=== PATIENT | female | born 1935 | race Caucasian/White ===

== ENCOUNTER 2018-04-16 18:34 | Inpatient (IN) ==
--- NOTE | 2018-04-16 21:05 | Emergency Department Note ---
Disposition Clinical Impression: Laceration, Elbow fracture, right Fall Qualifiers: Encounter type: initial encounter Qualified Code(s): W19.XXXA - Unspecified fall, initial encounter Disposition: Admitted As Inpatient Condition: Undetermined Time of Disposition: 22:27 (Dr Mendez accepted her PROLONGED ER VISIT due to pt declined suturing and then agreed to take pain control and her can not provide care at home) General Adult HPI - General Chief complaint: ED Fall Stated complaint: fell; lac on right eye/wrist and right chest pain Source: patient, family Limitations: no limitations - History of Present Illness HPI Narrative: Patient is a pleasant 82 yo F with past medical history significant for HTN, Dyslipidemia and CAD who is presenting to [facility] Emergency Room with a chief complaint off fall. She stumbled at the driveway at the parking lot and fell on her right side, bruised her chest and right forehead just above her right eye were there is a laceration and right elbow pain. She has no LOC. She takes baby ASA. She finds difficult to take deep breath. She also c/o right knee pain. She has no other complaints. Patient denies any fever, chills or night sweats. Pt also denies any eye pain or visual disturbances. There is no sore throat, nasal drainages or facial congestion. There is no chest pain, palpitations or racing heart. Pt also denies any shortness of breath, cough or chest congestion. There is no abdominal pain, nausea, vomiting or diarrhea. There is no urgency, frequency or dysuria. There is no neurological manifestations, no headache, no vertigo or weakness. The patient also denies any anxiety, depression, hallucinations and has no homicidal or suicidal ideations. There is no polyuria, polydipsia or recent weight change. There is no easy bruising or bleeding. Review of other systems is otherwise negative except above. Onset (ago): hour(s) Location: face, upper extremity, lower extremity Radiation: non-radiation Pain Severity: moderate Pain Scale: 6 - Related Data Home Medications Medication Instructions Recorded Confirmed Allopurinol [Zyloprim] 200 mg PO QID 03/15/15 03/15/15 Atorvastatin [Lipitor] 40 mg PO HS 03/15/15 03/15/15 Cholecalciferol (Vitamin D3) 2,000 unit PO 1-2XD 03/15/15 03/15/15 [Vitamin D] Ferrous Sulfate 325 mg PO DAILY 03/15/15 03/15/15 Furosemide [Lasix] 20 mg PO BIDDIURETIC 03/15/15 03/15/15 Labetalol [Trandate] 200 mg PO BID 03/15/15 03/15/15 Lisinopril [Zestril] 40 mg PO 1-2XD 03/15/15 03/15/15 Paceron 200 mg PO QDPC 03/15/15 03/15/15 Potassium Chloride 10 meq PO BIDWM 03/15/15 03/15/15 glipiZIDE [Glucotrol] 5 mg PO 0800 03/15/15 03/15/15 Allergies Allergy/AdvReac Type Severity Reaction Status Date / Time No Known Allergies Allergy Verified 03/15/15 17:33 All systems ED: reviewed and negative except as stated. 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: Reports: no MAGNETO 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 - Social History Smoking Status: Never smoker Smokeless Tobacco Status: No Alcohol use: Reports: none Drug use: Reports: none Physical Exam - General Limitations: no limitations General appearance: alert - Head Head exam: normocephalic, normal inspection, other (right upper eylid with 2 cm laceration deep above the lid) - Eye Eye exam: Present: normal appearance, PERRL, EOMI - Expanded Eye Exam Pupils: Left: reactive - ENT ENT exam: normal exam, normal oropharynx, mucous membranes moist - Expanded ENT Exam External ear exam: Present: normal external inspection Mouth exam: Present: normal external inspection Teeth exam: Present: normal inspection Throat exam: Present: normal inspection - Neck Neck exam: Present: normal inspection, full ROM, trachea midline - Chest Chest inspection: Present: normal inspection, symmetric chest wall rise, tenderness, other (tender bluish discolration on right rib cage) - Respiratory Respiratory exam: Present: normal lung sounds bilaterally - Cardiovascular Cardiovascular exam: Present: regular rate, normal rhythm, normal heart sounds - Abdominal Exam Abdominal exam: Present: soft, Non-Tender. Absent: tenderness, distention, guarding, rebound, rigidity - Extremities Exam Extremities exam: Present: normal inspection, full ROM. Absent: tenderness, pedal edema - Expanded Upper Extremity Exam Shoulder exam: Present: normal inspection, full ROM Arm exam: Present: normal inspection, full ROM Elbow exam: Present: normal inspection, full ROM, tenderness (tender right elbow with full ROM but limited due to the pain) Forearm/Wrist exam: Present: normal inspection, full ROM Hand exam: Present: normal inspection, full ROM, abrasion, laceration (right dorsum hand with 2 cm laceration superficial), ecchymosis Vascular exam: Normal: capillary refill, radial pulse - Expanded Lower Extremity Exam Hip/Pelvis exam: Present: normal inspection, full ROM Upper leg exam: Present: normal inspection, full ROM Knee exam: Present: normal inspection, full ROM, tenderness (right knee is bruised and tender but has full ROM) Lower leg exam: Present: normal inspection, full ROM Ankle exam: Present: normal inspection, full ROM Foot/toe exam: Present: normal inspection, full ROM Neurovascular/Tendon exam: Absent: motor deficit, sensory deficit, tendon deficit - Back Exam Back exam: Present: normal inspection, full ROM. Absent: tenderness - Neurological Exam Neurological exam: Present: alert, oriented X3 - Expanded Neurological Exam Patient oriented to: Present: person, place, time Coma Scale Eye Opening: Spontaneous Coma Scale Motor Response: Obeys Commands Coma Scale Verbal Response: Oriented Coma Scale Total: 15 - Psychiatric Psychiatric exam: Present: normal affect, normal mood - Skin Skin exam: Present: warm, dry, intact, normal color Course Vital Signs Temperature 98.5 F 04/16/18 18:38 Pulse Rate 63 04/16/18 18:38 Respiratory Rate 22 04/16/18 18:38 Blood Pressure 185/75 04/16/18 18:38 O2 Sat by Pulse Oximetry 99 04/16/18 18:38 Temperature 98.5 F 04/16/18 18:38 Pulse Rate 68 04/16/18 20:25 Respiratory Rate 14 04/16/18 20:25 Blood Pressure 174/70 04/16/18 20:25 O2 Sat by Pulse Oximetry 98 04/16/18 20:25 Oxygen Delivery Oxygen Delivery Room Air Procedures - Laceration Laceration 1 Site: face Side (If applicable): right Size (cm): 2 Description: stellate, irregular Depth: simple, single layer Local Anesthetic: lidocaine 1% Amount of Anesthesia Used (mL): 3 Pre-repair: wound explored, irrigated extensively Skin layer closed with: nylon Size: 4-0 Number of sutures/jennifer: 2 Technique: simple, interrupted Laceration 2 Site: hand Side (If applicable): right Size (cm): 3.5 Description: stellate, irregular Depth: simple, single layer Local Anesthetic: lidocaine 1% Amount of Anesthesia Used (mL): 3 Pre-repair: wound explored, irrigated extensively Skin layer closed with: nylon Size: 4-0 Number of sutures/jennifer: 2 Technique: simple, interrupted Medical Decision Making - MDM Narrative Medical decision making narrative: PROLONGED TIME IN ER as pt declined taking pain meds then was not cooperative with suturing. I transferred her to a well light room on wheel chair by myself and attempted to help her getting into the bed after lowering it but family and patient became upset and requested that she will not be able to move to the bed I explained that repairing laceration on wheelchair is challenging since lidocaine and flushing may go into her eyes and she will need to extend and tilt her head and stabilize it during the procedure which may be difficult for her. DC with Dr David regarding the elbow Fx and he advised to place splint and FU tomorrow at [facility] - Medical Records Medical records reviewed: Yes I reviewed the patient's medical records. - Lab Data Lab results reviewed: Yes I reviewed the patient's lab results. - Radiology Data Radiology results reviewed: Yes I reviewed the patient's radiology results.
[2018-04-16] MEDS ORDERED: *HR* HYDROcodone/Acet 5/325 mg TABLET PO ONE (22:04)
[2018-04-16] MEDS ORDERED: Tdap (Boostrix) Vaccine 0.5 ML SYRINGE IM ONE (22:39)
[2018-04-16] MEDS ORDERED: Lisinopril 20 MG TABLET PO SCH (22:45)
[2018-04-16] MEDS ORDERED: Cholecalciferol (D-3) 1,000 UNIT TABLET PO SCH (22:45)
[2018-04-17] MEDS ORDERED: Sulfamethoxazole/Trimeth DS 1 EACH TABLET PO SCH ×2 (00:45→09:00)
[2018-04-17] MEDS ORDERED: Naloxone 0.4 MG/ML INJ IVP PRN (02:32)
[2018-04-17] MEDS: *HR* HYDROcodone/Acet 5/325 mg TABLET PO PRN (04:15)
[2018-04-17 05:42] LABS: Basophils % 0.4 %; Eosinophils # 0.1 K/mcL (0.0-0.6); Eosinophils % 1.4 %; Hematocrit 32.7 % (35.3-44.9); Hemoglobin 10.9 g/dL (11.5-15.4); Immature Granulocytes % 0.1 % (0-4); Lymphocytes # 1.2 K/mcL (0.6-4.6); Lymphocytes % 17.8 %; Mean Corpuscular HGB Conc 33.3 g/dL (31.6-35.5); Mean Corpuscular Hemoglobin 30.9 pg (28.0-33.3); Mean Corpuscular Volume 92.6 fL (83.0-100.0); Mean Platelet Volume 10.8 fL (9.4-12.4); Monocytes # 0.5 K/mcL (0.0-1.3); Monocytes % 7.8 %; Platelet Count 178 K/mcL (140-400); Red Blood Count 3.53 M/mcL (3.82-4.97); Red Cell Distribution Width 14.4 % (11.5-14.5); Segmented Neutrophils % 72.5 %
[2018-04-17 06:05] LABS: BUN/Creatinine Ratio 41 (6-26); Blood Urea Nitrogen 30 mg/dL (8-23); Calcium 9.3 mg/dL (8.6-10.3); Carbon Dioxide 25 mEq/L (23-29); Chloride 106 mEq/L (98-107); Glucose 106 mg/dL (70-105); Osmolality,Calculated 297 (280-300); Potassium 3.7 mEq/L (3.5-5.1); Sodium 140 mEq/L (136-145); eGFR For Non-African Americans > 60 (> 60)
[2018-04-17] MEDS ORDERED: Dextrose Gel 15 GM/37.5 ML TUBE PO PRN ×2 (07:24)
[2018-04-17] MEDS ORDERED: *HR* Dextrose 50 % in Water (Syg) 50 ML SYRINGE IVP PRN (07:24)
[2018-04-17] MEDS ORDERED: D5% in Water 1,000 ML IVC PRN (07:24)
[2018-04-17] MEDS: Ondansetron ODT 4 MG TAB.RAPDIS SL PRN (07:51)
[2018-04-17] MEDS ORDERED: *HR* Promethazine 25 MG/ML VIAL IVP PRN (09:01)
[2018-04-17] MEDS: Insulin LISPRO 300 UNITS/3 ML VIAL SQ SCH ×4 (09:48→21:25)
[2018-04-17] MEDS: *HR* GlipiZIDE 5 MG TABLET PO SCH (13:36)
[2018-04-17] MEDS: Furosemide 20 MG TABLET PO SCH ×2 (13:36→15:52)
[2018-04-17] MEDS: Lisinopril 20 MG TABLET PO SCH (13:37)
[2018-04-17] MEDS: [UNRECOGNIZED DRUG - OTHER] PO SCH (13:37)
[2018-04-17] MEDS: Cholecalciferol (D-3) 1,000 UNIT TABLET PO SCH (13:37)
--- NOTE | 2018-04-17 15:06 | Internal Med History&Physical ---
Date of Encounter: 04/17/18 Time of Encounter: 14:10 Assessment and Plan (1) Elbow fracture, right Current visit: Yes Status: Acute Continue immobilization sling. She will follow with orthopedist tomorrow morning. Analgesics will be scheduled with additional medication for prn use. Qualifiers: Encounter type: initial encounter Fracture type: closed Qualified Code(s) : S42.401A - Unspecified fracture of lower end of right humerus, initial encounter for closed fracture (2) Anemia Current visit: Yes Status: Acute Order anemia testing in a.m. Qualifiers: Anemia type: unspecified type Qualified Code(s): D64.9 - Anemia, unspecified (3) Weight loss Current visit: Yes Status: Acute 15 pound weight loss reported by history. Check TSH in a.m. Further workup can be done by her PCP as an outpatient. (4) Hypertension Current visit: Yes Status: Chronic Continue lisinopril and labetalol. Qualifiers: Hypertension type: essential hypertension Qualified Code(s): I10 - Essential (primary) hypertension (5) Azotemia Current visit: Yes Status: Acute She reports taking Lasix 20 mg daily for edema. IV fluids will be started and labs rechecked in a.m. (6) DM type 2 (diabetes mellitus, type 2) Current visit: Yes Status: Acute Check hemoglobin A1c in a.m. Continue Glucotrol and do Accu-Cheks with SSI. Qualifiers: Diabetes mellitus long-term insulin use: without buttermaker continuous churn use Diabetes mellitus complication status: without complication Qualified Code(s): E11.9 - Type 2 diabetes mellitus without complications Internal Medicine - H&P: HPI Chief complaint: Fall and arm fracture Admitted From: Emergency Dept Plans for Post Hospital Care: Home History of present illness: Ms. Connor is a 82 year old female who came to emergency room after a fall in a hallway at home. She reports she simply lost her balance and fell to the floor. She struck her head on either the floor or the wall causing a right eyebrow area laceration. She sustained a right radius fracture. She was brought to emergency room and evaluated. Her right eyebrow laceration was sutured and she was placed in a right arm immobilization splint and admitted to [facility] for ongoing care needs. She states she has not fallen at home previously. She complains of discomfort in her left arm and knees. Musko skeletal history is significant otherwise for gout DJD and osteopenia with vitamin D deficiency Past Med Surg Social Fam HX - Past Medical History Medical history: CVA, diabetes, hyperlipidemia, hypertension Additional medical history: cardiac doctor at [place]. Psychiatric history: no psych history - Past Surgical History Surgical History: hysterectomy Additional surgical history: Valve replacement - Social History Smoking Status: Never smoker Smokeless Tobacco Status: No Alcohol use: none Drug use: none Internal Medicine - H&P: Meds Allopurinol [Zyloprim] 200 mg PO QID 03/15/15 [History] Atorvastatin [Lipitor] 40 mg PO HS 03/15/15 [History] Cholecalciferol (Vitamin D3) [Vitamin D] 2,000 unit PO 1-2XD 03/15/15 [History] Ferrous Sulfate 325 mg PO DAILY 03/15/15 [History] Furosemide [Lasix] 20 mg PO BIDDIURETIC 03/15/15 [History] Labetalol [Trandate] 200 mg PO BID 03/15/15 [History] Lisinopril [Zestril] 40 mg PO 1-2XD 03/15/15 [History] Paceron 200 mg PO QDPC 03/15/15 [History] Potassium Chloride 10 meq PO BIDWM 03/15/15 [History] glipiZIDE [Glucotrol] 5 mg PO 0800 03/15/15 [History] 3 Allergy/AdvReac Type Severity Reaction Status Date / Time No Known Allergies Allergy Verified 03/15/15 17:33 All Systems PM: A 10-system review of systems was performed and is negative for pertinent findings except as documented above in the HPI. Review of systems: Gen.: She states her weight has decreased approximately 15 pounds in the past month, unintentionally Cardiovascular: She has history of hypertension and aortic stenosis with [facility] aortic tissue valve replacement 2012. She had 2 vessel CABG with BERNSTEIN to LAD and SVG to first OMB of circumflex at the time of AVR. She had postoperative atrial fibrillation. She is maintained on amiodarone and had a watchman device placed in 2014. She denies DVT or pulmonary embolus. Respiratory: She smoked minimally as an adult and has no known chronic lung disease GI: She had GI bleed with hospitalization 2010. This felt to be due to NSAID use and she has had no recurrence. 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 She has been maintained on aspirin. She has had no seizures or migraine headaches Endocrine: She was diagnosed with DM 2 approximately 2006. 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 She has had anemia and has been on iron replacement. Upper and lower endoscopy 2015 showed no obvious source of blood loss. Psychiatric: She denies anxiety depression or other mental health issues Musko skeletal: As per history of present illness - Constitutional Vitals: Temp Pulse Resp BP Pulse Ox 98.8 F 73 18 143/81 98 04/17/18 11:04/17/18 11:04/17/18 11:04/17/18 11:04/17/18 11:00 Exam: Gen.: She is a well-developed well-nourished female resting comfortably in bed who appears in no severe distress at present time HEENT she has a laceration with sutures in place in the right eyebrow area. There is surrounding ecchymosis. Eyes: EOMI. There is no scleral icterus. Mouth: Mucosa is moist. Neck: Supple and nontender. There is no thyromegaly or adenopathy noted. Heart: Regular without murmurs gallops or ectopics Lungs: No wheezes or crackles are heard. Abdomen: Soft and nontender. No masses or guarding are noted. Extremities: There is no cyanosis edema or clubbing noted. Dorsalis pedis and posterior tibial pulses are trace palpable bilaterally. She has ecchymosis on her right lateral knee area. She has pain on attempted movement of her left arm. No ecchymoses are noted. Right arm is wrapped in elastic wrap with an immobilizer sling in place. I did not remove these. Neurologic: Mental status: She is talkative and a good historian. Cranial nerves: Smile is symmetric. Forehead wrinkles bilaterally. Tongue protrudes midline. EOMI. Motor: She has pain on tempting to raise her left arm. The right arm is in an immobilizer sling. No further neurologic testing is attempted. Skin: Warm and dry. Internal Med - H&P Results - Labs CBC & Chem 7: 09/17/18 04:10 04/17/18 04:10 Labs: Short CBC 04/17/18 Range/Units 04:10 WBC 7.0 (4.3-11.1) K/mcL Hgb 10.9 L (11.5-15.4) g/dL Hct 32.7 L (35.3-44.9) % Plt Count 178 (140-400) K/mcL Neutrophils # 5.0 (1.6-8.9) K/mcL BMP 04/17/18 04:10 Sodium 140 Potassium 3.7 Chloride 106 Carbon Dioxide 25 BUN 30 H Creatinine 0.74 Glucose 106 H Calcium 9.3
[2018-04-17] MEDS ORDERED: traZODone 50 MG TABLET PO PRN (15:21)
[2018-04-17] MEDS: 0.45 % Sodium Chloride w/KCl 20 MEQ/1,000 ML MLS IVC SCH (15:39)
[2018-04-18] MEDS: 0.45 % Sodium Chloride w/KCl 20 MEQ/1,000 ML MLS IVC SCH (01:49)
[2018-04-18 06:51] LABS: Basophils % 0.6 %; Eosinophils # 0.2 K/mcL (0.0-0.6); Eosinophils % 3.4 %; Hematocrit 31.3 % (35.3-44.9); Hemoglobin 10.3 g/dL (11.5-15.4); Immature Granulocytes % 0.4 % (0-4); Lymphocytes # 1.2 K/mcL (0.6-4.6); Lymphocytes % 22.9 %; Mean Corpuscular HGB Conc 32.9 g/dL (31.6-35.5); Mean Corpuscular Hemoglobin 30.8 pg (28.0-33.3); Mean Corpuscular Volume 93.7 fL (83.0-100.0); Mean Platelet Volume 10.9 fL (9.4-12.4); Monocytes # 0.5 K/mcL (0.0-1.3); Monocytes % 8.8 %; Neutrophils # 3.3 K/mcL (1.6-8.9); Platelet Count 163 K/mcL (140-400); Red Blood Count 3.34 M/mcL (3.82-4.97); Red Cell Distribution Width 14.4 % (11.5-14.5); Segmented Neutrophils % 63.9 %
[2018-04-18 07:58] LABS: Alanine Aminotransferase 16 Units/L (7-52); Albumin 3.5 g/dL (3.5-5.7); Albumin/Globulin Ratio 1.9 (1.1-2.2); Alkaline Phosphatase 100 Units/L (34-104); Aspartate Amino Transferase 17 Units/L (13-39); BUN/Creatinine Ratio 32 (6-26); Bilirubin,Total 0.7 mg/dL (0.3-1.0); Blood Urea Nitrogen 24 mg/dL (8-23); Calcium 9.1 mg/dL (8.6-10.3); Carbon Dioxide 25 mEq/L (23-29); Chloride 106 mEq/L (98-107); Globulin 1.8 g/dL (2.4-3.5); Glucose 103 mg/dL (70-105); Osmolality,Calculated 292 (280-300); Potassium 4.4 mEq/L (3.5-5.1); Sodium 139 mEq/L (136-145); Total Protein 5.3 g/dL (6.4-8.9); Uric Acid 2.2 mg/dL (2.3-7.6); eGFR For Non-African Americans > 60 (> 60)
[2018-04-18 09:13] LABS: Thyroid Stimulating Hormone 2.215 mcIU/mL (0.340-5.600)
[2018-04-18 11:01] LABS: Estimated Average Glucose 114 mg/dl; Hemoglobin A1C 5.6 %
[2018-04-18] MEDS: Insulin LISPRO 300 UNITS/3 ML VIAL SQ SCH ×4 (11:50→20:47)
[2018-04-18] MEDS: Lisinopril 20 MG TABLET PO SCH (12:03)
[2018-04-18] MEDS: *HR* GlipiZIDE 5 MG TABLET PO SCH (12:03)
[2018-04-18] MEDS: Cholecalciferol (D-3) 1,000 UNIT TABLET PO SCH (12:04)
[2018-04-18] MEDS: Furosemide 20 MG TABLET PO SCH ×2 (12:05→17:34)
--- NOTE | 2018-04-18 12:53 | Internal Med Progress Note ---
Date of Encounter: 04/18/18 Time of Encounter: 12:45 - Assessment and plan (1) Elbow fracture, right Current Visit: Yes Status: Acute Assessment and plan: April 18. Cast now in place. Continue analgesics and therapy intervention. Qualifiers: Encounter type: initial encounter Fracture type: closed Qualified Code(s) : S42.401A - Unspecified fracture of lower end of right humerus, initial encounter for closed fracture (2) Elbow fracture, left Current Visit: Yes Status: Acute Assessment and plan: April 18. She will return to the orthopedist for intervention. She will need significant therapy intervention and be unable to have care needs met in the home environment for a few weeks. Qualifiers: Encounter type: initial encounter Fracture type: closed Qualified Code(s) : S42.402A - Unspecified fracture of lower end of left humerus, initial encounter for closed fracture (3) Anemia Current Visit: Yes Status: Acute Assessment and plan: April 18. Anemia testing results partially pending. Qualifiers: Anemia type: unspecified type Qualified Code(s): D64.9 - Anemia, unspecified (4) Weight loss Current Visit: Yes Status: Acute Assessment and plan: April 18. TSH was normal. (5) Hypertension Current Visit: Yes Status: Chronic Assessment and plan: April 18. Continue lisinopril and labetalol. Qualifiers: Hypertension type: essential hypertension Qualified Code(s): I10 - Essential (primary) hypertension (6) Azotemia Current Visit: Yes Status: Acute Assessment and plan: April 18. BUN and creatinine 24 and 0.76 with estimated GFR greater than 60. Continue IV fluids until tomorrow. (7) DM type 2 (diabetes mellitus, type 2) Current Visit: Yes Status: Acute Assessment and plan: Hemoglobin A1c 5.6%. Blood sugars reviewed. Continue Glucotrol and Accu-Cheks with SSI. Qualifiers: Diabetes mellitus fpc insulin use: without fpc use Diabetes mellitus complication status: without complication Qualified Code(s): E11.9 - Type 2 diabetes mellitus without complications - Subjective Interval history: April 18. She has no noticeable pain in her left arm. She saw the orthopedist this morning who put a cast on her right arm for the right radial fracture. Left arm x-rays were ordered and showed intra-articular fracture of the radial head with depression of fracture fragments. - Constitutional Vitals: Temp Pulse Resp BP Pulse Ox 98.4 F 70 16 136/65 96 04/18/18 06:22 04/18/18 06:22 04/18/18 06:22 04/18/18 06:22 04/18/18 06:22 Exam: She is lying in bed and appears in minimal pain at rest. Her affect is overall cheerful. I reviewed her medications and lab results. Internal Medicine: Result - Labs CBC & Chem 7: 04/18/18 05:45 04/18/18 05:45 Labs: Short CBC 04/18/18 Range/Units 05:45 WBC 5.2 (4.3-11.1) K/mcL Hgb 10.3 L (11.5-15.4) g/dL Hct 31.3 L (35.3-44.9) % Plt Count 163 (140-400) K/mcL Neutrophils # 3.3 (1.6-8.9) K/mcL BMP 04/18/18 05:45 Sodium 139 Potassium 4.4 Chloride 106 Carbon Dioxide 25 BUN 24 H Creatinine 0.76 Glucose 103 Calcium 9.1 Liver Function 04/18/18 Range/Units 05:45 Total Bilirubin 0.7 (0.3-1.0) mg/dL AST 17 (13-39) Units/L ALT 16 (7-52) Units/L Alkaline Phosphatase 100 (34-104) Units/L Albumin 3.5 (3.5-5.7) g/dL - Impressions Impressions Elbow X-Ray 04/18/18 11:15 IMPRESSION: Intra-articular fracture of the radial head with mild depression of fracture fragments. D/ / 04/18/2018 12:01:08 Juan Decker MD / [facility] Interpreting Provider: Juan Decker MD Shoulder X-Ray 04/18/18 11:15 IMPRESSION: No acute osseous abnormality is identified in the shoulders. Mild degenerative changes seen at the acromioclavicular and glenohumeral joint. D/ / Maximino Booth MD / Maximino Booth MD Interpreting Provider: Maximino Booth MD Wrist X-Ray 04/18/18 11:15 IMPRESSION: 1. No acute osseous abnormality of the left wrist. 2. Bony demineralization. 3. Osteoarthritis. D/ / 04/18/2018 11:58:40 Tara Giraldo MD / [facility] Interpreting Provider: Tara Giraldo MD Consult Discharge Plan - Plan Referrals: Kyle Jacobs MD [Primary Care Provider] - 1 week
[2018-04-18] MEDS: [UNRECOGNIZED DRUG - OTHER] PO SCH (13:43)
[2018-04-18 14:17] LABS: % Iron Saturation 15 % (15-50); Iron 50 mcg/dL (50-170); Transferrin 238 mg/dL (203-362)
[2018-04-18 14:25] LABS: Ferritin 83 ng/mL (10-120)
[2018-04-19 06:49] LABS: Basophils % 0.7 %; Eosinophils # 0.2 K/mcL (0.0-0.6); Hematocrit 31.6 % (35.3-44.9); Hemoglobin 10.4 g/dL (11.5-15.4); Immature Granulocytes % 0.4 % (0-4); Lymphocytes # 1.2 K/mcL (0.6-4.6); Lymphocytes % 21.6 %; Mean Corpuscular HGB Conc 32.9 g/dL (31.6-35.5); Mean Corpuscular Hemoglobin 30.7 pg (28.0-33.3); Mean Corpuscular Volume 93.2 fL (83.0-100.0); Mean Platelet Volume 10.7 fL (9.4-12.4); Monocytes # 0.5 K/mcL (0.0-1.3); Monocytes % 8.2 %; Neutrophils # 3.6 K/mcL (1.6-8.9); Platelet Count 167 K/mcL (140-400); Red Blood Count 3.39 M/mcL (3.82-4.97); Red Cell Distribution Width 14.4 % (11.5-14.5); Segmented Neutrophils % 65.1 %
[2018-04-19 07:17] LABS: BUN/Creatinine Ratio 40 (6-26); Blood Urea Nitrogen 33 mg/dL (8-23); Calcium 9.3 mg/dL (8.6-10.3); Carbon Dioxide 28 mEq/L (23-29); Chloride 104 mEq/L (98-107); Glucose 87 mg/dL (70-105); Osmolality,Calculated 297 (280-300); Potassium 4.2 mEq/L (3.5-5.1); Sodium 140 mEq/L (136-145); eGFR For Non-African Americans > 60 (> 60)
[2018-04-19] MEDS: Insulin LISPRO 300 UNITS/3 ML VIAL SQ SCH ×3 (08:00→16:43)
[2018-04-19] MEDS: *HR* GlipiZIDE 5 MG TABLET PO SCH (08:48)
[2018-04-19] MEDS: Furosemide 20 MG TABLET PO SCH ×2 (08:48→16:47)
[2018-04-19] MEDS: Cholecalciferol (D-3) 1,000 UNIT TABLET PO SCH (08:49)
[2018-04-19] MEDS: Lisinopril 20 MG TABLET PO SCH (08:49)
[2018-04-19] MEDS: [UNRECOGNIZED DRUG - OTHER] PO SCH (10:16)
--- NOTE | 2018-04-19 12:36 | Internal Med Progress Note ---
Date of Encounter: 04/19/18 Time of Encounter: 10:00 - Assessment and plan (1) Elbow fracture, right Current Visit: Yes Status: Acute Assessment and plan: April 18. Cast now in place. Continue analgesics and therapy intervention. Qualifiers: Encounter type: initial encounter Fracture type: closed Qualified Code(s) : S42.401A - Unspecified fracture of lower end of right humerus, initial encounter for closed fracture (2) Elbow fracture, left Current Visit: Yes Status: Acute Assessment and plan: April 18. She will return to the orthopedist for intervention. She will need significant therapy intervention and be unable to have care needs met in the home environment for a few weeks. April 19. No cast or surgery planned at this time. She will follow up with orthopedist as directed. Qualifiers: Encounter type: initial encounter Fracture type: closed Qualified Code(s) : S42.402A - Unspecified fracture of lower end of left humerus, initial encounter for closed fracture (3) Anemia Current Visit: Yes Status: Acute Assessment and plan: April 18. Anemia testing results partially pending. April 19. Anemia testing showed iron 50, transferrin saturation 15%, transferrin 238, ferritin 83, B12 1160, and folate 15.7. Hemoglobin stable at 10.4 today. Qualifiers: Anemia type: unspecified type Qualified Code(s): D64.9 - Anemia, unspecified (4) Weight loss Current Visit: Yes Status: Acute Assessment and plan: April 18. TSH was normal. (5) Hypertension Current Visit: Yes Status: Chronic Assessment and plan: April 18. Continue lisinopril and labetalol. Qualifiers: Hypertension type: essential hypertension Qualified Code(s): I10 - Essential (primary) hypertension (6) Azotemia Current Visit: Yes Status: Acute Assessment and plan: April 18. BUN and creatinine 24 and 0.76 with estimated GFR greater than 60. Continue IV fluids until tomorrow. April 19. IV became dislodged and will not been restarted. Continue to monitor renal indices. (7) DM type 2 (diabetes mellitus, type 2) Current Visit: Yes Status: Acute Assessment and plan: Hemoglobin A1c 5.6%. Blood sugars reviewed. Continue Glucotrol and Accu-Cheks with SSI. 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 She has no noticeable pain in her left arm. She saw the orthopedist this morning who put a cast on her right arm for the right radial fracture. Left arm x-rays were ordered and showed intra-articular fracture of the radial head with depression of fracture fragments. April 19. She has no new complaints. - Constitutional Vitals: Temp Pulse Resp BP Pulse Ox 98.1 F 75 14 150/61 95 04/19/18 06:28 04/19/18 08:46 04/19/18 06:28 04/19/18 08:46 04/19/18 06:28 Exam: She is resting comfortably in bed and appears in no acute distress. Sutures in the right eyebrow area appears clean and without drainage. She has significant periorbital ecchymoses. Right arm cast is in place. Left arm immobilization splint is in place with a sling. I reviewed her medications and lab results. Internal Medicine: Result - Labs CBC & Chem 7: 04/19/18 05:27 04/19/18 05:27 Labs: Short CBC 04/19/18 Range/Units 05:27 WBC 5.5 (4.3-11.1) K/mcL Hgb 10.4 L (11.5-15.4) g/dL Hct 31.6 L (35.3-44.9) % Plt Count 167 (140-400) K/mcL Neutrophils # 3.6 (1.6-8.9) K/mcL BMP 04/19/18 05:27 Sodium 140 Potassium 4.2 Chloride 104 Carbon Dioxide 28 BUN 33 H Creatinine 0.83 Glucose 87 Calcium 9.3 Consult Discharge Plan - Plan Referrals: Kyle Jacobs MD [Primary Care Provider] - 1 week
[2018-04-20] MEDS: *HR* HYDROcodone/Acet 5/325 mg TABLET PO PRN ×2 (02:11→22:22)
[2018-04-20] MEDS: Insulin LISPRO 300 UNITS/3 ML VIAL SQ SCH ×5 (04:30→20:14)
[2018-04-20] MEDS: *HR* GlipiZIDE 5 MG TABLET PO SCH (08:09)
[2018-04-20] MEDS: Furosemide 20 MG TABLET PO SCH ×2 (08:09→16:04)
[2018-04-20] MEDS: Cholecalciferol (D-3) 1,000 UNIT TABLET PO SCH (09:59)
[2018-04-20] MEDS ORDERED: Lisinopril 20 MG TABLET PO SCH (10:01)
[2018-04-20] MEDS ORDERED: Isovue-370 500 ML INFUS..BTL IV ONE (10:10)
--- NOTE | 2018-04-20 10:16 | Internal Med Progress Note ---
Date of Encounter: 04/20/18 Time of Encounter: 10:05 - Assessment and plan (1) Elbow fracture, right Current Visit: Yes Status: Acute Assessment and plan: April 18. Cast now in place. Continue analgesics and therapy intervention. Qualifiers: Encounter type: initial encounter Fracture type: closed Qualified Code(s) : S42.401A - Unspecified fracture of lower end of right humerus, initial encounter for closed fracture (2) Elbow fracture, left Current Visit: Yes Status: Acute Assessment and plan: April 18. She will return to the orthopedist for intervention. She will need significant therapy intervention and be unable to have care needs met in the home environment for a few weeks. April 19. No cast or surgery planned at this time. She will follow up with orthopedist as directed. Qualifiers: Encounter type: initial encounter Fracture type: closed Qualified Code(s) : S42.402A - Unspecified fracture of lower end of left humerus, initial encounter for closed fracture (3) Anemia Current Visit: Yes Status: Acute Assessment and plan: April 18. Anemia testing results partially pending. April 19. Anemia testing showed iron 50, transferrin saturation 15%, transferrin 238, ferritin 83, B12 1160, and folate 15.7. Hemoglobin stable at 10.4 today. Qualifiers: Anemia type: unspecified type Qualified Code(s): D64.9 - Anemia, unspecified (4) Weight loss Current Visit: Yes Status: Acute Assessment and plan: April 18. TSH was normal. (5) Hypertension Current Visit: Yes Status: Chronic Assessment and plan: April 18. Continue lisinopril and labetalol. April 20. Blood pressure occasionally borderline low. Decrease lisinopril to 20 mg daily and continue present dose labetalol. Qualifiers: Hypertension type: essential hypertension Qualified Code(s): I10 - Essential (primary) hypertension (6) Azotemia Current Visit: Yes Status: Acute Assessment and plan: April 18. BUN and creatinine 24 and 0.76 with estimated GFR greater than 60. Continue IV fluids until tomorrow. April 19. IV became dislodged and will not been restarted. Continue to monitor renal indices. (7) DM type 2 (diabetes mellitus, type 2) Current Visit: Yes Status: Acute Assessment and plan: Hemoglobin A1c 5.6%. Blood sugars reviewed. Continue Glucotrol and Accu-Cheks with SSI. Qualifiers: Diabetes mellitus terminal operator insulin use: without terminal operator use Diabetes mellitus complication status: without complication Qualified Code(s): E11.9 - Type 2 diabetes mellitus without complications (8) Shoulder pain, bilateral Current Visit: Yes Status: Acute Assessment and plan: April 20. Will order CT of shoulders to further evaluate. Qualifiers: Chronicity: acute Qualified Code(s): M25.511 - Pain in right shoulder; M25.512 - Pain in left shoulder - Subjective Interval history: April 18. She has no noticeable pain in her left arm. She saw the orthopedist this morning who put a cast on her right arm for the right radial fracture. Left arm x-rays were ordered and showed intra-articular fracture of the radial head with depression of fracture fragments. April 19. She has no new complaints. April 20. She has no new complaints. She reports both shoulders have discomfort. - Constitutional Vitals: Temp Pulse Resp BP Pulse Ox 97.9 F 64 16 126/71 96 04/20/18 06:26 04/20/18 06:26 04/20/18 06:26 04/20/18 06:26 04/20/18 06:26 Exam: She is sitting in a chair at bedside resting comfortably. Her affect is bright and cheerful. There are evolutionary healing changes of the laceration/orbital ecchymosis. Heart is regular without murmurs gallops or ectopics. Lungs are clear anteriorly. I reviewed her medications and lab results. Internal Medicine: Result - Labs CBC & Chem 7: 04/19/18 05:27 04/19/18 05:27 Consult Discharge Plan - Plan Referrals: Kyle Jacobs MD [Primary Care Provider] - 1 week
[2018-04-20] MEDS: *HR* Amiodarone 200 MG TABLET PO SCH (11:50)
[2018-04-20] MEDS: Ondansetron ODT 4 MG TAB.RAPDIS SL PRN (11:51)
[2018-04-21 06:19] VITALS: BP 141/80
[2018-04-21] MEDS: *HR* Amiodarone 200 MG TABLET PO SCH (07:44)
[2018-04-21] MEDS: Cholecalciferol (D-3) 1,000 UNIT TABLET PO SCH (07:45)
[2018-04-21] MEDS: *HR* GlipiZIDE 5 MG TABLET PO SCH (07:45)
[2018-04-21] MEDS: Furosemide 20 MG TABLET PO SCH (07:45)
[2018-04-21] MEDS: Insulin LISPRO 300 UNITS/3 ML VIAL SQ SCH (07:55)
--- NOTE | 2018-04-21 11:15 | Discharge Summary ---
Date of Encounter: 04/21/18 Time of Encounter: 11:00 - Discharge Diagnosis (1) Elbow fracture, right Priority: Primary Status: Acute Qualifiers: Encounter type: initial encounter Fracture type: closed Qualified Code(s) : S42.401A - Unspecified fracture of lower end of right humerus, initial encounter for closed fracture (2) Elbow fracture, left Priority: Secondary Status: Acute Qualifiers: Encounter type: initial encounter Fracture type: closed Qualified Code(s) : S42.402A - Unspecified fracture of lower end of left humerus, initial encounter for closed fracture (3) Anemia Priority: Secondary Status: Acute Qualifiers: Anemia type: unspecified type Qualified Code(s): D64.9 - Anemia, unspecified (4) Weight loss Priority: Secondary Status: Acute (5) Hypertension Priority: Secondary Status: Chronic Qualifiers: Hypertension type: essential hypertension Qualified Code(s): I10 - Essential (primary) hypertension (6) Azotemia Priority: Secondary Status: Acute (7) DM type 2 (diabetes mellitus, type 2) Priority: Secondary Status: Chronic Qualifiers: Diabetes mellitus longterm insulin use: without hand umbrella tipper use Diabetes mellitus complication status: without complication Qualified Code(s): E11.9 - Type 2 diabetes mellitus without complications (8) Shoulder pain, bilateral Priority: Secondary Status: Acute Qualifiers: Chronicity: acute Qualified Code(s): M25.511 - Pain in right shoulder; M25.512 - Pain in left shoulder Hospital course: Ms. Connor is a 82 year old female who came to emergency room after a fall in a hallway at home. She reports she simply lost her balance and fell to the floor. She struck her head on either the floor or the wall causing a right eyebrow area laceration. She sustained a right radius fracture. She was brought to emergency room and evaluated. Her right eyebrow laceration was sutured and she was placed in a right arm immobilization splint and admitted to [facility] for ongoing care needs. Initial orders were written by the emergency room physician. I saw her on April 17 and performed the history and physical. She saw the orthopedist who placed a right arm cast for the right elbow fracture. X-rays were ordered of the left arm and showed fracture of the left elbow also. She was placed in an immobilizer splint. CT scans of shoulders showed no full thickness rotator cuff tear. She received scheduled analgesics with prn analgesics available. Physical therapy and occupational therapy evaluations were ordered. She made satisfactory progress. She will need a few weeks of rehabilitation therapy and significant nursing care due to limitations from bilateral arm fractures. Arrangements were completed on April 21 for her to be discharged to [facility] for ongoing care needs. Anemia testing showed iron 50, transferrin saturation 15%, transferrin 238, ferritin 83, B12 1160, and folate 15.7. CBC will be monitored. Uric acid returned satisfactory 2.2. Hemoglobin A1c returned satisfactory 5.6. Glucotrol will be reduced to 2.5 mg daily to lessen the risk of hypoglycemia. Blood pressure showed significant fluctuation with occasional episodes of hypotension. Lisinopril was reduced to 20 mg daily. Labetalol was continued at 200 mg twice a day. She will follow with me at [facility]. She will follow with the orthopedist as directed. - Time Spent with Patient Total time spent providing and/or coordinating discharge services: - Discharge Medications Prescriptions: HYDROcodone/Acet 5/325 mg [[place] 5-325 mg] 1 tab PO Q6HR PRN 14 Days #56 tablet PRN Reason: Pain Home Medications: Atorvastatin [Lipitor] 40 mg PO HS 03/15/15 [History] Cholecalciferol (Vitamin D3) [Vitamin D3] 2,000 unit PO 1-2XD 03/15/15 [History] Ferrous Sulfate 325 mg PO DAILY 03/15/15 [History] Labetalol [Trandate] 200 mg PO BID 03/15/15 [History] Lisinopril [Zestril] 40 mg PO 1-2XD 03/15/15 [History] Paceron 200 mg PO QDPC 03/15/15 [History] Potassium Chloride 10 meq PO BIDWM 03/15/15 [History] Acetaminophen [Tylenol] 500 mg PO Q4HWA tablet 04/21/18 [Rx] Allopurinol [Zyloprim 100 MG] 200 mg PO BID #0 04/21/18 [Rx] Furosemide [Lasix] 20 mg PO DAILY tablet 04/21/18 [Rx] HYDROcodone/Acet 5/325 mg [[place] 5-325 mg] 1 tab PO Q6HR PRN 14 Days #56 tablet 04/21/18 [Rx] glipiZIDE [Glucotrol] 2.5 mg PO 0800 365 Days tablet 04/21/18 [Rx] Allergies/Adverse Reactions: 3 Allergy/AdvReac Type Severity Reaction Status Date / Time No Known Allergies Allergy Verified 03/15/15 17:33 Date of admission: 04/18/18 19:42 Primary care physician: Kyle Jacobs MD - Constitutional Vitals: Temp Pulse Resp BP Pulse Ox 97.8 F 63 16 141/80 97 04/21/18 06:17 04/21/18 06:17 04/21/18 06:17 04/21/18 06:17 04/21/18 06:17 - Patient Status Disposition: Transfer SNF Condition: Undetermined - Discharge Instructions - Diet and Activity Activity: as per physical therapy Diet: low fat, low cholesterol
--- NOTE | 2018-04-21 11:24 | Physician Discharge Referral ---
ExtendedCare Referral Info Transfer To: [facility] Provider in Charge: Brennon Provider in Charge after Transfer: PCP (Brennon) - Diagnosis (1) Elbow fracture, right Priority: Primary Status: Acute (2) Elbow fracture, left Priority: Secondary Status: Acute (3) Anemia Priority: Secondary Status: Acute (4) Weight loss Priority: Secondary Status: Acute (5) Hypertension Priority: Secondary Status: Chronic (6) Azotemia Priority: Secondary Status: Acute (7) DM type 2 (diabetes mellitus, type 2) Priority: Secondary Status: Chronic (8) Shoulder pain, bilateral Priority: Secondary Status: Acute Prognosis: Good Aware of Diagnosis: Patient, Family Aware of Prognosis: Patient, Family - Transfer Medications Prescriptions: HYDROcodone/Acet 5/325 mg [[place] 5-325 mg] 1 tab PO Q6HR PRN 14 Days #56 tablet PRN Reason: Pain Home Medications: Atorvastatin [Lipitor] 40 mg PO HS 03/15/15 [History] Cholecalciferol (Vitamin D3) [Vitamin D3] 2,000 unit PO 1-2XD 03/15/15 [History] Ferrous Sulfate 325 mg PO DAILY 03/15/15 [History] Labetalol [Trandate] 200 mg PO BID 03/15/15 [History] Lisinopril [Zestril] 40 mg PO 1-2XD 03/15/15 [History] Paceron 200 mg PO QDPC 03/15/15 [History] Potassium Chloride 10 meq PO BIDWM 03/15/15 [History] Acetaminophen [Tylenol] 500 mg PO Q4HWA tablet 04/21/18 [Rx] Allopurinol [Zyloprim 100 MG] 200 mg PO BID #0 04/21/18 [Rx] Furosemide [Lasix] 20 mg PO DAILY tablet 04/21/18 [Rx] HYDROcodone/Acet 5/325 mg [[place] 5-325 mg] 1 tab PO Q6HR PRN 14 Days #56 tablet 04/21/18 [Rx] glipiZIDE [Glucotrol] 2.5 mg PO 0800 365 Days tablet 04/21/18 [Rx] Allergies/Adverse Reactions: 3 Allergy/AdvReac Type Severity Reaction Status Date / Time No Known Allergies Allergy Verified 03/15/15 17:33 - Respiratory Orders Smoking Cessation: Smoking cessation has been advised. For more information, call the [place] Tobacco Quit Line at 8-960-AGXH-NOW. - Lab Orders Lab Orders: Other (include drug levels w/frequency) (CBC with differential, BMP , BNP peptide in 5 days) - Rehabiliation Orders Rehab Potential: Good Rehab Orders: Evaluation for Physical Therapy, Evaluation for Occupational Therapy - Diet Orders Cardiac CERTIFICATION: I certify that the transfer of the above named patient to an Extended Care Facility is necessary for the continuing treatment of the diagnosis listed. The above information is true and accurate reflection of patient's current condition. Confidential - Redisclosure prohibited without a patient's written consent.
== END 2018-04-21 13:00 | DRG 563 ==
LOC: INPPIK 18:34 → EMEROOPIK 18:34 → INPPIK 04-17 00:59
PROVIDERS: ADMIT Internal Medicine; ATTEND Internal Medicine